=== PATIENT | female | born 1950 | race Caucasian/White ===

== ENCOUNTER 2021-02-25 20:05 | Emergency (ER) | payer MEDICARE ==
[2021-02-25 21:10] LABS: #Eosinphils 0.1 10x3/uL (0.0-0.5); #Monocytes 0.5 10x3/uL (0.0-1.1); #Neutrophils 3.8 10x3/uL (1.5-8.4); %Basophils 0.4 % (0.0-2.0); %Eosinophils 1.2 % (0.0-6.0); %Lymphocytes 34.5 % (18.0-47.0); %Monocytes 6.9 % (0.0-10.0); %Neutrophils 56.4 % (40.0-75.0); Hemoglobin 13.1 g/dL (12.0-15.5); Mean Corpuscular HGB CONC 32.8 g/dL (32.0-36.0); Mean Corpuscular Hemoglobin 28.2 pg (27.0-33.0); Mean Platelet Volume 12.5 fl (7.4-10.4); Platelet Count 221 10x3/uL (150-450); Red Blood Cell (RBC) Count 4.65 10x6/uL (3.90-5.03); White Blood Cell (WBC) Count 6.8 10x3/uL (3.5-10.5)
[2021-02-25] MEDS ORDERED: Mag-Al Plus 1200 MG/1200 MG/120 MG/30 ML UDCUP ONE ×2 (21:10)
[2021-02-25] MEDS ORDERED: Lidocaine Viscous Sol 2% 15 ml UD Cup ONE (21:11)
[2021-02-25] MEDS ORDERED: Ondansetron PF 4 MG/2 ML Vial ONE (21:11)
[2021-02-25] MEDS ORDERED: Fentanyl 100 MCG/2 ML VIAL ONE (21:14)
[2021-02-25 21:25] LABS: ALT (SGPT) 34 U/L (8-55); AST (SGOT) 21 U/L (5-34); Albumin 4.2 g/dL (3.4-4.8); Alkaline Phosphatase 67 U/L (40-110); Anion Gap 18 mmol/L (10-20); BUN (Urea Nitrogen) 16 mg/dL (9.8-20.1); Bilirubin, Total 0.5 mg/dL (0.2-1.2); Calc. Creatinine Clearance 0 mL/min (70-130); Calcium 10.1 mg/dL (7.8-10.44); Carbon Dioxide 32 mmol/L (23-31); Chloride 98 mmol/L (98-107); Glucose 273 mg/dL (80-115); Lipase 52 U/L (8-78); Magnesium 1.7 mg/dL (1.6-2.6); Protein, Total 7.2 g/dL (5.8-8.1); Sodium 144 mmol/L (136-145)
[2021-02-25] MEDS ORDERED: Metoclopramide HCl 10 MG/2 ML VIAL ONE (22:14)
[2021-02-25] MEDS ORDERED: diphenhydrAMINE 50 MG/ML VIAL ONE (22:14)
[2021-02-25 22:21] LABS: Bilirubin Neg (Negative); Blood, Urine Negative (Negative); Clarity Slightly Cloudy (Clear); Glucose, Urine (Dipstick) >=1000 mg/dL (Negative); Ketone, Urine 5 mg/dL (Negative); Leukocyte 100 (Negative); Nitrite Negative (Negative); Protein, Urine (Dipstick) Negative (Neg-Trace); Specific Gravity, Urine 1.015 (1.002-1.036); Urobilinogen Normal mg/dL (Less than 2)
[2021-02-25 22:33] LABS: RBC/HPF 0-3 HPF (0-3); WBC/HPF 21-50 HPF (0-3)
[2021-02-25 22:34] LABS: Bacteria/HPF 1+ HPF (None Seen); Transitional Epithelial 0-3 HPF (None Seen)
[2021-02-25] MEDS ORDERED: cefTRIAXone\\ROCEPHIN 1 GM VIAL ONE (23:20)
== END 2021-02-26 00:38 | disposition home or self-care (01) ==
LOC: CSHERS 20:05
DX: N12 Tubulo-interstitial nephritis, not specified as acute or chronic (principal); K21.9 Gastro-esophageal reflux disease without esophagitis; K58.9 Irritable bowel syndrome, unspecified; E78.5 Hyperlipidemia, unspecified; I10 Essential (primary) hypertension; Z79.899 Other long term (current) drug therapy; E11.9 Type 2 diabetes mellitus without complications; Z79.4 Long term (current) use of insulin
CPT/HCPCS: 36415; 71045; 74177; 80053; 81003; 81015; 83690; 83735; 84484; 85025; 87077; 87086; 87186; 93005; 96365; 96375; J0696; J1200; J2405; J2765; J3010

== ENCOUNTER 2021-12-28 07:40 | Outpatient (CLI) | payer MEDICARE ==
[2021-12-28 23:50] LABS: SARS-CoV-2 PCR by NAA Not Detected (NotDetected)
== END 2021-12-28 07:41 | disposition home or self-care (01) ==
LOC: CSHLAB 07:40
PROVIDERS: ATTEND Internal Medicine Cardiovascular Disease
DX: Z20.822 Contact with and (suspected) exposure to COVID-19 (principal); R06.02 Shortness of breath
CPT/HCPCS: U0003; U0005

== ENCOUNTER 2022-06-15 10:10 | Outpatient (CLI) | payer MEDICARE | END 2022-06-15 10:11 | disposition home or self-care (01) | LOC: CSHMAMMO 10:10 | PROVIDERS: ATTEND Family Medicine | DX: Z12.31 Encounter for screening mammogram for malignant neoplasm of breast (principal); Z80.3 Family history of malignant neoplasm of breast | CPT/HCPCS: 77063; 77067 ==

== ENCOUNTER 2023-09-25 11:59 | Outpatient (CLI) | payer MEDICARE | END 2023-09-25 12:00 | disposition home or self-care (01) | LOC: CSHMAMMO 11:59 | PROVIDERS: ATTEND Family Medicine | DX: Z12.31 Encounter for screening mammogram for malignant neoplasm of breast (principal); Z80.3 Family history of malignant neoplasm of breast | CPT/HCPCS: 77063; 77067 ==

== ENCOUNTER 2024-10-07 11:14 | Outpatient (CLI) | payer MEDICARE | END 2024-10-07 11:15 | disposition home or self-care (01) | LOC: CSHMAMMO 11:14 | PROVIDERS: ATTEND Nurse Practitioner Family | DX: Z12.31 Encounter for screening mammogram for malignant neoplasm of breast (principal); Z80.3 Family history of malignant neoplasm of breast | CPT/HCPCS: 77063; 77067 ==

== ENCOUNTER 2025-10-08 09:37 | Outpatient (CLI) | payer MEDICARE | END 2025-10-08 09:38 | disposition home or self-care (01) | LOC: CSHMAMMO 09:37 | PROVIDERS: ATTEND Nurse Practitioner Family | DX: Z12.31 Encounter for screening mammogram for malignant neoplasm of breast (principal); Z80.3 Family history of malignant neoplasm of breast | CPT/HCPCS: 77063; 77067 ==